=== PATIENT | male | born 1990 | race American Indian/Alaskan Native ===

== ENCOUNTER 2017-11-20 00:02 | Emergency (ER) | payer SELFPAY ==
[2017-11-20 00:07] VITALS: BP 138/86
--- NOTE | 2017-11-20 01:32 | Emergency Department Report ---
ED ENT HPI - General Chief complaint: Dental/Oral Stated complaint: TOOTHACHE Time Seen by Provider: 11/20/17 01:25 Source: patient, family Mode of arrival: Ambulatory Limitations: No Limitations - History of Present Illness Initial comments: This is a 27-year-old male here report that he is having toothache to right lower back tooth that been ongoing and he lost his insurance they doesn't have it dentist at present. Pain is 10 out of 10 and feels achy. Denies any drooling or sore throat. Denies any sinus pain or pressure. Denies any nasal congestion, cough, chest pain or runny nose. Denies any difficulty breathing. He said he took [id number] pain medication without any relief. Denies any swelling of face. Pain is worse with chilling but no alleviating factors. MD complaint: tooth pain Onset/Timin -: days(s) Location: tooth # (back to) 1 - Patient reports pain to right lower back teeth. Severity: severe Severity scale (0 -10): 10 Quality: aching Consistency: constant Improves with: none Worsens with: eating Context- Dental: history of dental caries, poor dental care Associated Symptoms: gum swelling, toothache. denies: fever, cough, pain with swallowing, sore throat, tinnitus, hearing loss, discharge from ear, rhinorrhea - Related Data Previous Rx's Medication Instructions Recorded Last Taken Type Acetaminophen/Codeine [Tylenol 1 tab PO Q6H PRN #14 tab 11/20/17 Unknown Rx /Codeine # 3 tab] Ibuprofen [Motrin] 800 mg PO Q8HR PRN #15 tablet 11/20/17 Unknown Rx Penicillin V Potassium 500 mg PO Q8H 10 Days #30 tablet 11/20/17 Unknown Rx Allergies Allergy/AdvReac Type Severity Reaction Status Date / Time No Known Allergies Allergy Unverified 11/20/17 00:55 ED Dental HPI - General Chief complaint: Dental/Oral Stated complaint: TOOTHACHE Time Seen by Provider: 11/20/17 01:25 Source: patient Mode of arrival: Ambulatory Limitations: No Limitations - Related Data Previous Rx's Medication Instructions Recorded Last Taken Type Acetaminophen/Codeine [Tylenol 1 tab PO Q6H PRN #14 tab 11/20/17 Unknown Rx /Codeine # 3 tab] Ibuprofen [Motrin] 800 mg PO Q8HR PRN #15 tablet 11/20/17 Unknown Rx Penicillin V Potassium 500 mg PO Q8H 10 Days #30 tablet 11/20/17 Unknown Rx Allergies Allergy/AdvReac Type Severity Reaction Status Date / Time No Known Allergies Allergy Unverified 11/20/17 00:55 ED Review of Systems ROS: Stated complaint: TOOTHACHE Other details as noted in HPI Constitutional: denies: chills, fever Eyes: denies: eye pain, eye discharge, vision change ENT: dental pain. denies: ear pain, throat pain, hearing loss, epistaxis, congestion Respiratory: denies: cough, shortness of breath, SOB with exertion, SOB at rest , stridor, wheezing Cardiovascular: denies: chest pain, palpitations Gastrointestinal: diarrhea. denies: nausea, vomiting Musculoskeletal: denies: back pain, joint swelling, arthralgia Skin: denies: rash, lesions Neurological: denies: headache, weakness ED Past Medical Hx - Past Medical History Previous Medical History?: No - Surgical History Past Surgical History?: No - Family History Family history: no significant - Social History Smoking Status: Never Smoker Substance Use Type: None - Medications Home Medications: Home Medications Medication Instructions Recorded Confirmed Last Taken Type Acetaminophen/Codeine [Tylenol 1 tab PO Q6H PRN #14 tab 11/20/17 Unknown Rx /Codeine # 3 tab] Ibuprofen [Motrin] 800 mg PO Q8HR PRN #15 tablet 11/20/17 Unknown Rx Penicillin V Potassium 500 mg PO Q8H 10 Days #30 tablet 11/20/17 Unknown Rx ED Physical Exam - General Limitations: No Limitations General appearance: alert, in no apparent distress - Head Head exam: Present: atraumatic, normocephalic, normal inspection - Eye Eye exam: Present: normal appearance, PERRL, EOMI Pupils: Present: normal accommodation - ENT ENT exam: Present: normal exam, normal orophraynx, mucous membranes moist, TM's normal bilaterally, normal external ear exam - Expanded ENT Exam Expanded Ear exam: Present: normal external inspection Mouth exam: Present: normal external inspection Teeth exam: Present: dental caries, fractured tooth #, dental tenderness #, gingival enlargement (mild) 1 - Dental Tenderness (#32 and #33), Other (until carries upper and lower.) Throat exam: Positive: normal inspection - Neck Neck exam: Present: normal inspection, full ROM, other (no C-spine tenderness). Absent: tenderness, lymphadenopathy - Respiratory Respiratory exam: Present: normal lung sounds bilaterally. Absent: respiratory distress, chest wall tenderness - Cardiovascular Cardiovascular Exam: Present: normal rhythm, bradycardia (asymptomatic bradycardia), normal heart sounds. Absent: rubs, gallop - GI/Abdominal GI/Abdominal exam: Present: soft - Extremities Exam Extremities exam: Present: normal inspection, full ROM, normal capillary refill , other (no clubbing, cyanosis or edema. +2 pulses to all extremities and no neurovascular compromise). Absent: pedal edema, joint swelling, calf tenderness - Neurological Exam Neurological exam: Present: alert, oriented X3, normal gait - Psychiatric Psychiatric exam: Present: normal affect, normal mood - Skin Skin exam: Present: warm, dry, intact, normal color. Absent: rash ED Course Vital Signs 11/20/17 11/20/17 00:01 00:57 Temperature 99.4 F 99.4 F Pulse Rate 51 L 51 L Respiratory 16 16 Rate Blood Pressure 138/86 138/86 O2 Sat by Pulse 100 100 Oximetry - Reevaluation(s) Reevaluation #1: 11/20/17 01:50 Patient given penicillin VK 500 mg and Hoskins 5/325 2 tablets by mouth prior to leaving the emergency room for dental pain and caries. ED Medical Decision Making - Medical Decision Making ED course: This is a 27-year-old male here for toothache and reported that he knows he has an infection and he has limited a dentist and that he needs some pain medicine and antibiotic. Patient and is running a low-grade fever. He said over-the- counter pain medication isn't helping. Patient was seen and examined by myself and found to have mild gingivitis, widespread dental caries especially to tooth #32 and 33 with dental tenderness around these areas. Except for poor gums and dental caries mouth exam is normal. I explained to patient that he needs to follow-up with a dentist to fix underlying problem of gum disease and dental caries. I told him I'll refer him to [facility] dental clinic which I told him he will probably need to pay a sliding scale fee based on his income and he voiced understanding. I also discussed with them that if he does not get this problem taken care of this will return and could lead to infection in his blood and his valve in his heart. A/P 1: Toothache: Better with Hoskins 5/325 2 tablets by mouth. Plan to Send home on Motrin and Tylenol 3 2: Dental caries-patient started on penicillin VK 500 mg by mouth in the emergency room and planned to send home on penicillin 3: Gingivitis-started on antibiotic and emergency room and will referred to [facility] dental clinic. Prescription given for penicillin VK, Tylenol No. 3 and Motrin upon discharge. Patient vital signs are stable and somewhat low-grade fever but I discussed with him that he needs to take Motrin as prescribed 2 days and then as needed and this will help with his fever and also his toothache. He voiced understanding Discharge instructions given a diagnosis, medication, treatment plan and need to follow-up. He voiced understanding. Pt discharged home to follow up with [facility] dental clinic in 3 days for evaluation and treatment of widespread dental caries and gingivitis. He is stable and nontoxic in appearance. Discharged home with his family in stable condition and fourth nondistended discharged ejection. Critical care attestation.: If time is entered above; I have spent that time in minutes in the direct care of this critically ill patient, excluding procedure time. ED Disposition Clinical Impression: Toothache, Dental caries, Gingivitis, acute Disposition: DC-01 TO HOME OR SELFCARE Is pt being admited?: No Does the pt Need Aspirin: No Condition: Stable Instructions: Gingivitis (ED), Dental Caries (ED), Toothache (ED) Additional Instructions: Follow-up with [facility] dental clinic in 3 days for evaluation and treatment of gingivitis and dental caries Take Motrin for mild to moderate pain and this will also help with fever but please do not take on empty stomach as this can cause irritation to stomach lining Take Tylenol No. 3 for moderate to severe pain. Penicillin VK antibiotic as prescribed Floss Gargle with Listerine wash twice daily Prescriptions: Acetaminophen/Codeine [Tylenol /Codeine # 3 tab] 1 tab PO Q6H PRN #14 tab PRN Reason: moderate to severe toothache Ibuprofen [Motrin] 800 mg PO Q8HR PRN #15 tablet PRN Reason: mild /moderate toothache/fever Penicillin V Potassium 500 mg PO Q8H 10 Days #30 tablet Referrals: [facility] [Outside] - 11/22/17 [facility] [Outside] - 11/22/17 [facility] [Outside] - 11/22/17 Forms: Work/School Release Form(ED)
[2017-11-20] MEDS ORDERED: NORCO 5/325 PO ONE (01:33)
[2017-11-20] MEDS ORDERED: VEETIDS PO ONE (01:33)
== END 2017-11-20 02:09 | disposition home or self-care (01) ==
LOC: ED 00:02
DX: K02.9 Dental caries, unspecified (principal); K05.00 Acute gingivitis, plaque induced
CPT/HCPCS: 99282

== ENCOUNTER 2020-03-23 07:10 | Emergency (ER) | payer SELFPAY ==
[2020-03-23 07:33] VITALS: BP 140/71
--- NOTE | 2020-03-23 08:39 | Emergency Department Report ---
ED ENT HPI - General Chief complaint: Dental/Oral Stated complaint: MOUTH PAIN Time Seen by Provider: 03/23/20 08:23 Source: patient Mode of arrival: Ambulatory Limitations: No Limitations - History of Present Illness Initial comments: Patient is a 29-year-old male who presents emergency room with complaints of left upper dental pain that began a week ago. He states that he cracked the tooth approximately a week ago while chewing food. He states that he believes he got food stuck in the cracked tooth and now has swelling present to the gum and he believes it is infected. He states that he last saw a dentist a year ago and needs to have 4 teeth pulled but never followed up. He denies any fever, facial swelling, difficulty swallowing, difficulty breathing, vomiting, diarrhea, chills, any other symptoms. No past medical history. No allergies to medications. - Related Data Previous Rx's Medication Instructions Recorded Last Taken Type Acetaminophen/Codeine [Tylenol 1 tab PO Q6H PRN #14 tab 11/20/17 Unknown Rx /Codeine # 3 tab] Ibuprofen [Motrin] 800 mg PO Q8HR PRN #15 tablet 11/20/17 Unknown Rx Penicillin V Potassium 500 mg PO Q8H 10 Days #30 tablet 11/20/17 Unknown Rx Ibuprofen [Motrin 600 MG tab] 600 mg PO Q8H PRN #20 tablet 03/23/20 Unknown Rx Penicillin Vk [Veetids TAB] 500 mg PO QID 7 Days #56 tablet 03/23/20 Unknown Rx Allergies Allergy/AdvReac Type Severity Reaction Status Date / Time No Known Allergies Allergy Verified 11/20/17 01:37 ED Dental HPI - General Chief complaint: Dental/Oral Stated complaint: MOUTH PAIN Time Seen by Provider: 03/23/20 08:23 Source: patient Mode of arrival: Ambulatory Limitations: No Limitations - Related Data Previous Rx's Medication Instructions Recorded Last Taken Type Acetaminophen/Codeine [Tylenol 1 tab PO Q6H PRN #14 tab 11/20/17 Unknown Rx /Codeine # 3 tab] Ibuprofen [Motrin] 800 mg PO Q8HR PRN #15 tablet 11/20/17 Unknown Rx Penicillin V Potassium 500 mg PO Q8H 10 Days #30 tablet 11/20/17 Unknown Rx Ibuprofen [Motrin 600 MG tab] 600 mg PO Q8H PRN #20 tablet 03/23/20 Unknown Rx Penicillin Vk [Veetids TAB] 500 mg PO QID 7 Days #56 tablet 03/23/20 Unknown Rx Allergies Allergy/AdvReac Type Severity Reaction Status Date / Time No Known Allergies Allergy Verified 11/20/17 01:37 ED Review of Systems ROS: Stated complaint: MOUTH PAIN Other details as noted in HPI Comment: All other systems reviewed and negative ED Past Medical Hx - Past Medical History Previous Medical History?: No - Surgical History Past Surgical History?: No - Social History Smoking Status: Never Smoker Substance Use Type: Alcohol, Marijuana - Medications Home Medications: Home Medications Medication Instructions Recorded Confirmed Last Taken Type Acetaminophen/Codeine [Tylenol 1 tab PO Q6H PRN #14 tab 11/20/17 Unknown Rx /Codeine # 3 tab] Ibuprofen [Motrin] 800 mg PO Q8HR PRN #15 tablet 11/20/17 Unknown Rx Penicillin V Potassium 500 mg PO Q8H 10 Days #30 tablet 11/20/17 Unknown Rx Ibuprofen [Motrin 600 MG tab] 600 mg PO Q8H PRN #20 tablet 03/23/20 Unknown Rx Penicillin Vk [Veetids TAB] 500 mg PO QID 7 Days #56 tablet 03/23/20 Unknown Rx ED Physical Exam - General Limitations: No Limitations General appearance: alert, in no apparent distress - Head Head exam: Present: atraumatic, normocephalic - Eye Eye exam: Present: normal appearance - ENT ENT exam: Present: normal orophraynx, mucous membranes moist, other (left upper molar is cracked with partial remnants remaining, there is a 0.5 area of edema to the gumline, mild erythema to the gumline, no facial edema, uvula is midline, no uvular edema or deviation, no tongue elevation, no muffled voice) - Respiratory Respiratory exam: Absent: respiratory distress, accessory muscle use - Neurological Exam Neurological exam: Present: alert, oriented X3 - Psychiatric Psychiatric exam: Present: normal affect, normal mood - Skin Skin exam: Present: warm, dry, intact ED Course Vital Signs 03/23/20 07:32 Temperature 98.0 F Pulse Rate 69 Respiratory 17 Rate Blood Pressure 140/71 [Right] O2 Sat by Pulse 100 Oximetry ED Medical Decision Making - Medical Decision Making Patient is a 29-year-old male who presents emergency room with complaints of left upper dental pain that began a week ago. He states that he cracked the tooth approximately a week ago while chewing food. He states that he believes he got food stuck in the cracked tooth and now has swelling present to the gum and he believes it is infected. He states that he last saw a dentist a year ago and needs to have 4 teeth pulled but never followed up. He denies any fever, facial swelling, difficulty swallowing, difficulty breathing, vomiting, diarrhea, chills, any other symptoms. No past medical history. No allergies to medications. VSS. on exam: left upper molar is cracked with partial remnants remaining, there is a 0.5 area of edema to the gumline, mild erythema to the gumline, no facial edema, uvula is midline, no uvular edema or deviation, no tongue elevation, no muffled voice. Appears to have dental caries and small dental abscess. No signs of facial cellulitis or facial abscess or Lucian's at this time. Patient will be placed on penicillin VK and ibuprofen. Patient will be given multiple dental clinic resources. Advised patient to please take medication as prescribed. May gargle with warm salt water 3 times a day. Follow-up with a dentist. It is very important that you follow-up with a dentist. Return to emergency room for any new or worsening symptoms. Critical care attestation.: If time is entered above; I have spent that time in minutes in the direct care of this critically ill patient, excluding procedure time. ED Disposition Clinical Impression: Dental caries, Dental abscess, Dentalgia Disposition: - TO HOME OR SELFCARE Is pt being admited?: No Does the pt Need Aspirin: No Condition: Stable Instructions: Dental Caries (ED), Dental Abscess (ED) Additional Instructions: please take medication as prescribed. May gargle with warm salt water 3 times a day. Follow-up with a dentist. It is very important that you follow-up with a dentist. Return to emergency room for any new or worsening symptoms. Prescriptions: Ibuprofen [Motrin 600 MG tab] 600 mg PO Q8H PRN #20 tablet PRN Reason: Pain Penicillin Vk [Veetids TAB] 500 mg PO QID 7 Days #56 tablet Referrals: PRIMARY CARE, [Primary Care Provider] - 2-3 Days [facility] [Outside] - 2-3 Days [facility] [Outside] - 2-3 Days Time of Disposition: 08:39 Print Language: SAMOAN
== END 2020-03-23 08:46 | disposition home or self-care (01) ==
LOC: ED 07:10
DX: K02.9 Dental caries, unspecified (principal); K04.7 Periapical abscess without sinus; K08.89 Other specified disorders of teeth and supporting structures; F12.90 Cannabis use, unspecified, uncomplicated; Z79.899 Other long term (current) drug therapy
CPT/HCPCS: 99282